=== PATIENT | female | born 1945 | race Two or more races ===

== ENCOUNTER 2017-01-17 18:34 | Emergency (ER) | payer OTHER ==
[~2017-01-17] VITALS: Ht 124.5 cm; Wt 63.5 kg
[~2017-01-17 18:34] MED LIST: ALBUAER3 IN; ASPI81CH43 PO; B-COTAB95 PO; CALC667C PO; CINA30TA2 PO; CLO01T PO; DOCU-80 PO; FLUT250M2 IN; HYDR-2652 OR; MET25T PO; NIFE30TA76 PO; OXYM0.0594
[2017-01-17 19:53] LABS: Basophils # (auto) 0 uL; Basophils % (auto) 0.6 % (0.0-2.0); Eosinophils # (auto) 0.1 uL; Eosinophils % (auto) 2.7 % (0.0-7.0); Hematocrit 34.3 % (36.0-46.0); Lymphocytes % (auto) 20.8 % (10.0-50.0); Mean Corpuscular Hemoglobin 29.9 pg (28.0-32.0); Mean Corpuscular Hgb Conc. 32.1 g/dL (32.0-36.0); Mean Corpuscular Volume 93.2 fL (80.0-100.0); Mean Platelet Volume 8.7 fL (7.4-10.4); Monocytes # (auto) 0.6 uL; Monocytes % (auto) 12.2 % (0.0-12.0); Neutrophils # (auto) 3.1 uL; Neutrophils % (auto) 63.7 % (37.0-80.0); Platelet Count (auto) 214 10^3/uL (140-450); Red Cell Distribution Width 18.8 % (11.6-16.0); White Blood Cell 4.8 10^3/uL (4.4-10.8)
[2017-01-17 20:01] LABS: Calcium 7.1 mg/dL (8.5-10.1)
[2017-01-17 20:04] LABS: Albumin 3.4 g/dL (3.4-5.0); BUN/Creatinine Ratio 3.3
[2017-01-17 20:15] LABS: Bilirubin, Total 0.6 mg/dL (0.2-1.0); Total Protein 7.9 g/dL (6.4-8.2)
[2017-01-17 21:15] VITALS: BP 124/68
== END 2017-01-17 21:51 | disposition home or self-care (01) ==
LOC: EDBD 18:34 → ER 18:45
DX: R07.89 Other chest pain (principal); E11.22 Type 2 diabetes mellitus with diabetic chronic kidney disease; N18.6 End stage renal disease; I10 Essential (primary) hypertension; Z99.2 Dependence on renal dialysis; I50.9 Heart failure, unspecified; J45.909 Unspecified asthma, uncomplicated; J44.9 Chronic obstructive pulmonary disease, unspecified; Z79.82 Long term (current) use of aspirin; Z91.041 Radiographic dye allergy status
CPT/HCPCS: 36415; 71010; 80053; 83735; 84484; 85025; 93005; 94761

== ENCOUNTER 2017-04-01 01:10 | Emergency (ER) | payer OTHER ==
[~2017-04-01] VITALS: Ht 154.9 cm; Wt 40.8 kg
[~2017-04-01 01:10] MED LIST changes: -MET25T PO; +MET50T PO; +MORP10CA10 PO; +NITR0.4S29 SL
[2017-04-01] MEDS ORDERED: SODIUM CHLORIDE 0.9% 1,000 ML IV ONE (01:20)
[2017-04-01] MEDS ORDERED: ONDANSETRON HCL 4 MG/2 ML VIAL IV ONE (01:30)
[2017-04-01 03:04] LABS: Basophils # (auto) 0 uL; CONDITION Y; Eosinophils # (auto) 0.2 uL; Eosinophils % (auto) 2.7 % (0.0-7.0); Hemoglobin 11.4 g/dL (12.2-16.2); Lymphocytes # (auto) 0.2 uL; Lymphocytes % (auto) 1.8 % (10.0-50.0); Mean Corpuscular Hgb Conc. 32.4 g/dL (32.0-36.0); Mean Corpuscular Volume 92.4 fL (80.0-100.0); Mean Platelet Volume 8.7 fL (7.4-10.4); Monocytes # (auto) 0.3 uL; Monocytes % (auto) 3.6 % (0.0-12.0); Neutrophils # (auto) 8.3 uL; Neutrophils % (auto) 91.9 % (37.0-80.0); Platelet Count (auto) 183 10^3/uL (140-450); Red Cell Distribution Width 16.6 % (11.6-16.0); White Blood Cell 9.1 10^3/uL (4.4-10.8)
[2017-04-01 03:14] LABS: INR 1.15 (0.9-1.15)
[2017-04-01 03:16] LABS: Albumin 3.5 g/dL (3.4-5.0); Calcium 8.1 mg/dL (8.5-10.1); Potassium 4.1 mmol/L (3.5-5.1)
[2017-04-01 03:19] LABS: Bilirubin, Total 0.6 mg/dL (0.2-1.0); Total Protein 8.6 g/dL (6.4-8.2)
[2017-04-01 03:21] LABS: Prothrombin Time 12.6 sec (9.37-12.3)
[2017-04-01 06:11] VITALS: BP 143/52
== END 2017-04-01 10:31 | disposition home or self-care (01) ==
LOC: EDBD 01:10 → ER 01:10
DX: K52.9 Noninfective gastroenteritis and colitis, unspecified (principal); R41.82 Altered mental status, unspecified; N18.6 End stage renal disease; J44.9 Chronic obstructive pulmonary disease, unspecified; I50.9 Heart failure, unspecified; I13.2 Hypertensive heart and chronic kidney disease with heart failure and with stage 5 chronic kidney disease, or end stage renal disease; Z86.73 Personal history of transient ischemic attack (TIA), and cerebral infarction without residual deficits; Z90.49 Acquired absence of other specified parts of digestive tract; J45.909 Unspecified asthma, uncomplicated; Z79.82 Long term (current) use of aspirin; Z98.51 Tubal ligation status
CPT/HCPCS: 36415; 70450; 74176; 80053; 83690; 84484; 85025; 85610; 93005; 94761; 96361; 96374; 99285; J2405; J7030

== ENCOUNTER 2017-08-07 05:40 | Inpatient (IN) | payer OTHER ==
[~2017-08-07] VITALS: Ht 152.4 cm; Wt 50.3 kg
[~2017-08-07 05:40] MED LIST changes: -HYDR-2652 OR; +HYDR50TA15 OR
[2017-08-07] MEDS ORDERED: MORPHINE SULFATE 10 MG/ML INJ 1ML SDV IV ONE (08:00)
[2017-08-07] MEDS ORDERED: ONDANSETRON HCL 4 MG/2 ML VIAL IV ONE (08:00)
[2017-08-07] MEDS ORDERED: NITROGLYCERIN 0.4 MG SL TAB SL ONE (10:00)
[2017-08-07 10:55] LABS: Basophils # (auto) 0 uL; Basophils % (auto) 0.6 % (0.0-2.0); Eosinophils # (auto) 0.2 uL; Eosinophils % (auto) 3.5 % (0.0-7.0); Hematocrit 33.2 % (36.0-46.0); Hemoglobin 10.7 g/dL (12.2-16.2); Lymphocytes # (auto) 1.3 uL; Lymphocytes % (auto) 18.2 % (10.0-50.0); Mean Corpuscular Hemoglobin 31.1 pg (28.0-32.0); Mean Corpuscular Hgb Conc. 32.2 g/dL (32.0-36.0); Mean Corpuscular Volume 96.5 fL (80.0-100.0); Monocytes # (auto) 0.7 uL; Monocytes % (auto) 9.5 % (0.0-12.0); Neutrophils # (auto) 4.8 uL; Neutrophils % (auto) 68.2 % (37.0-80.0); Nucleated Red Blood Cells % 0.1 %; Platelet Count (auto) 192 10^3/uL (140-450); Red Blood Cells 3.44 10^6/uL (4.0-5.20); Red Cell Distribution Width 18.2 % (11.8-14.3)
[2017-08-07 11:14] LABS: Albumin 3.5 g/dL (3.4-5.0); BUN/Creatinine Ratio 8.9; Bilirubin, Total 0.7 mg/dL (0.2-1.0); Calcium 7.9 mg/dL (8.5-10.1); INR 1.15 (0.9-1.15); Magnesium 2.5 mg/dL (1.6-2.6); Partial Thromboplastin Time 37.9 sec (22.64-33.71); Potassium 4.6 mmol/L (3.5-5.1); Prothrombin Time 12.6 sec (9.37-12.3); Total Protein 7.9 g/dL (6.4-8.2)
[2017-08-07] MEDS ORDERED: PATIENTS OWN MEDICATION (Fluticasone-Salmeterol (Advair Diskus 250/50) 2 PUFF) IN SCH (12:00)
[2017-08-07] MEDS ORDERED: MORPHINE SULFATE 10 MG/ML INJ 1ML SDV IV PRN ×2 (12:00)
[2017-08-07] MEDS ORDERED: ACETAMINOPHEN 500 MG TAB PO PRN (12:00)
[2017-08-07] MEDS ORDERED: ALBUTEROL SULF 2.5 MG/0.5ML(0.5%) NEB SOLN NEB PRN (12:00)
[2017-08-07] MEDS ORDERED: TEMAZEPAM 15 MG CAP PO PRN (12:00)
[2017-08-07] MEDS ORDERED: cloNIDine HCL 0.1 MG TAB PO PRN (12:00)
[2017-08-07] MEDS ORDERED: PROMETHAZINE HCL 25 MG/ML 1ML IV PRN (12:00)
[2017-08-07] MEDS ORDERED: NITROGLYCERIN 0.4 MG SL TAB SL PRN (12:00)
[2017-08-07] MEDS ORDERED: HYDROcodone-ACET 5/325MG TAB PO PRN (12:00)
[2017-08-07] MEDS: IPRATROPIUM BROM 0.5 MG/2.5ML INH SOL NEB SCH ×2 (12:05→18:57)
[2017-08-07] MEDS: ALBUTEROL SULF 2.5 MG/0.5ML(0.5%) NEB SOLN NEB SCH ×2 (12:05→18:57)
[2017-08-07] MEDS ORDERED: NIFEdipine ER 30 MG TAB PO ONE (12:30)
[2017-08-07] MEDS ORDERED: METOPROLOL TARTRATE 50 MG TAB PO ONE (12:30)
[2017-08-07] MEDS: SODIUM CHLOR 0.9% PF (SALINE LOCK) 10ML VIAL IV SCH ×2 (13:06→22:46)
[2017-08-07] MEDS: NITROGLYCERIN 0.2MG/HR TOPICAL PATCH TD SCH (13:19)
[2017-08-07] MEDS: CALCIUM ACETATE 667 MG CAP PO SCH ×2 (13:19→17:43)
[2017-08-07] MEDS ORDERED: PATIENTS OWN MEDICATION (Hydralazine Hcl 50 MG) OR SCH (14:00)
[2017-08-07] MEDS: hydrALAZINE HCL 25 MG TAB PO SCH ×2 (14:00→22:43)
[2017-08-07] MEDS: DOXYCYCLINE HYC 100MG/250ML 250 ML IV SCH ×2 (14:16→23:43)
[2017-08-07 14:37] VITALS: BP 166/65
[2017-08-07] MEDS: LORazepam 0.5 MG TAB PO PRN (16:38)
[2017-08-07 16:42] VITALS: BP 141/72
[2017-08-07] MEDS ORDERED: ATORVASTATIN 20 MG TAB PO SCH (22:00)
[2017-08-07] MEDS ORDERED: MORPHINE SULFATE 15 MG PO SCH (22:00)
[2017-08-07] MEDS ORDERED: BUDESONIDE (INHALATION) 0.5 MG/2 ML NEB NEB SCH (22:00)
[2017-08-07 22:16] VITALS: BP 131/84
[2017-08-07] MEDS: MORPHINE SULF 15mg ER tab PO SCH (22:44)
[2017-08-07] MEDS: NIFEdipine ER 30 MG TAB PO SCH (22:45)
[2017-08-07] MEDS: DOCUSATE SOD 100 MG CAP PO SCH (22:45)
[2017-08-07] MEDS: METOPROLOL TARTRATE 50 MG TAB PO SCH (22:46)
[2017-08-07] MEDS: LACTULOSE 20Gm/30ML SOLN PO PRN (23:44)
[2017-08-08] MEDS: ALBUTEROL SULF 2.5 MG/0.5ML(0.5%) NEB SOLN NEB SCH ×2 (00:21→06:21)
[2017-08-08] MEDS: IPRATROPIUM BROM 0.5 MG/2.5ML INH SOL NEB SCH ×2 (00:21→06:21)
[2017-08-08] MEDS: LORazepam 0.5 MG TAB PO PRN ×2 (02:31→09:01)
[2017-08-08 05:00] VITALS: BP 175/65
[2017-08-08] MEDS: hydrALAZINE HCL 25 MG TAB PO SCH ×2 (06:59→14:00)
[2017-08-08] MEDS: SODIUM CHLOR 0.9% PF (SALINE LOCK) 10ML VIAL IV SCH ×2 (06:59→14:00)
[2017-08-08 07:20] LABS: Basophils # (auto) 0 uL; Basophils % (auto) 0.5 % (0.0-2.0); Eosinophils # (auto) 0.3 uL; Eosinophils % (auto) 3.4 % (0.0-7.0); Hematocrit 31.4 % (36.0-46.0); Hemoglobin 10.3 g/dL (12.2-16.2); Lymphocytes # (auto) 1.4 uL; Mean Corpuscular Hemoglobin 31.6 pg (28.0-32.0); Mean Corpuscular Hgb Conc. 32.7 g/dL (32.0-36.0); Mean Corpuscular Volume 96.4 fL (80.0-100.0); Monocytes # (auto) 0.9 uL; Monocytes % (auto) 11.2 % (0.0-12.0); Neutrophils # (auto) 5.5 uL; Neutrophils % (auto) 67.9 % (37.0-80.0); Nucleated Red Blood Cells % 0.2 %; Platelet Count (auto) 191 10^3/uL (140-450); Red Blood Cells 3.26 10^6/uL (4.0-5.20); Red Cell Distribution Width 18.2 % (11.8-14.3); White Blood Cell 8.1 10^3/uL (4.4-10.8)
[2017-08-08 07:40] LABS: Albumin 3.5 g/dL (3.4-5.0); BUN/Creatinine Ratio 9.9; Bilirubin, Total 0.7 mg/dL (0.2-1.0); Calcium 7.9 mg/dL (8.5-10.1); Potassium 4.8 mmol/L (3.5-5.1); Total Protein 7.9 g/dL (6.4-8.2)
[2017-08-08] MEDS: CALCIUM ACETATE 667 MG CAP PO SCH ×2 (07:56→12:00)
[2017-08-08] MEDS: LACTULOSE 20Gm/30ML SOLN PO PRN (08:07)
[2017-08-08] MEDS: DOCUSATE SOD 100 MG CAP PO SCH (09:16)
[2017-08-08] MEDS ORDERED: EPOETIN ALFA 2,000 UNIT/1 ML VIAL IV ONE (09:30)
[2017-08-08] MEDS ORDERED: CINACALCET HYDROCHLORIDE PO SCH (10:00)
[2017-08-08] MEDS ORDERED: FLUTICASONE PROP NASAL SPR 0.05 % (50MCG) 16GM EACHNOSTRI SCH (10:00)
[2017-08-08] MEDS: MORPHINE SULF 15mg ER tab PO SCH (10:00)
[2017-08-08] MEDS ORDERED: ASPirin 81 mg TAB PO SCH (10:00)
[2017-08-08] MEDS: NITROGLYCERIN 0.2MG/HR TOPICAL PATCH TD SCH (10:00)
[2017-08-08] MEDS ORDERED: CINACALCET HYDROCHLORIDE 30 MG TAB PO SCH (10:00)
[2017-08-08] MEDS: NIFEdipine ER 30 MG TAB PO SCH (10:00)
[2017-08-08] MEDS ORDERED: ENOXAPARIN SOD 40 MG/0.4 ML SYRINGE SC SCH (10:00)
[2017-08-08] MEDS: METOPROLOL TARTRATE 50 MG TAB PO SCH (10:00)
[2017-08-08] MEDS: DOXYCYCLINE HYC 100MG/250ML 250 ML IV SCH (12:00)
[2017-08-08 13:00] VITALS: BP 98/63
[2017-08-08] MEDS ORDERED: IPR002IS HHN (13:05)
[2017-08-08] MEDS ORDERED: ALB5IS NEB (13:05)
[2017-08-08] MEDS ORDERED: METH4PAK PO (13:05)
[2017-08-08 17:49] VITALS: BP 180/57
== END 2017-08-08 17:15 | disposition home health service (06) | DRG 313 ==
LOC: EDBD 05:40 → ER 05:44 → TELE 05:45 → TELE-E-ADS 15:11 → TELE-CENTR 15:59
PROVIDERS: ADMIT Internal Medicine; ATTEND Internal Medicine
PROC: 5A1D70Z Performance of Urinary Filtration, Intermittent, Less than 6 Hours Per Day (ICD-10-PCS; principal; 2017-08-08)
DX: R07.89 Other chest pain (principal); I13.2 Hypertensive heart and chronic kidney disease with heart failure and with stage 5 chronic kidney disease, or end stage renal disease; J96.10 Chronic respiratory failure, unspecified whether with hypoxia or hypercapnia; E11.22 Type 2 diabetes mellitus with diabetic chronic kidney disease; N18.6 End stage renal disease; J44.1 Chronic obstructive pulmonary disease with (acute) exacerbation; I50.32 Chronic diastolic (congestive) heart failure; E11.319 Type 2 diabetes mellitus with unspecified diabetic retinopathy without macular edema; D63.8 Anemia in other chronic diseases classified elsewhere; E78.5 Hyperlipidemia, unspecified; F02.80 Dementia in other diseases classified elsewhere, unspecified severity, without behavioral disturbance, psychotic disturbance, mood disturbance, and anxiety; G30.9 Alzheimer's disease, unspecified; G40.909 Epilepsy, unspecified, not intractable, without status epilepticus; G89.4 Chronic pain syndrome; H54.7 Unspecified visual loss; F41.9 Anxiety disorder, unspecified; M54.9 Dorsalgia, unspecified; K59.00 Constipation, unspecified; Z82.49 Family history of ischemic heart disease and other diseases of the circulatory system; Z82.5 Family history of asthma and other chronic lower respiratory diseases; Z83.3 Family history of diabetes mellitus; Z85.038 Personal history of other malignant neoplasm of large intestine; Z86.73 Personal history of transient ischemic attack (TIA), and cerebral infarction without residual deficits; Z87.891 Personal history of nicotine dependence; Z99.2 Dependence on renal dialysis; Z91.041 Radiographic dye allergy status; Z90.49 Acquired absence of other specified parts of digestive tract
CPT/HCPCS: 36415; 71010; 80053; 80061; 82550; 82962; 83735; 83880; 84443; 84484; 85025; 85379; 85610; 85652; 85730; 86141; 87081; 90935; 93005; 94640; 96372; 96374; 96375; J2405; J3490; Q4081

== ENCOUNTER 2018-02-19 14:41 | Inpatient (IN) | payer OTHER ==
[~2018-02-19] VITALS: Ht 144.8 cm; Wt 59.0 kg
[2018-02-19] MEDS: HEPARIN SODIUM (PORCINE) 5000 UNITS/ML 1ML VIAL SC SCH
[~2018-02-19 14:41] MED LIST changes: +ALB5IS NEB; +IPR002IS HHN; +PANT40TA2 PO
[2018-02-19] MEDS ORDERED: methylPREDNISolone SOD SUCC 125 MG/2 ML VL IV ONE (15:00)
[2018-02-19] MEDS ORDERED: diphenhdrAMINE HCL 50 MG/1 ML VL IV ONE (15:15)
[2018-02-19] MEDS ORDERED: ETOMIDATE (2MG/ML) 20ML VIAL IV ONE ×2 (15:35→15:45)
[2018-02-19] MEDS ORDERED: SUCCINYLCHOLINE CHLORIDE 20 MG/ML 10ML VIAL IV ONE ×2 (15:36→15:45)
[2018-02-19] MEDS ORDERED: MIDAZOLAM DRIP 50 mg/50mL 50 ML IV ONE (15:53)
[2018-02-19] MEDS: MIDAZOLAM DRIP 50 mg/50mL 50 ML IV SCH ×2 (15:54→20:58)
[2018-02-19 16:00] VITALS: BP 142/58
[2018-02-19 16:05] LABS: Basophils # (auto) 0 uL; Basophils % (auto) 0.6 % (0.0-2.0); Eosinophils # (auto) 0 uL; Eosinophils % (auto) 0.2 % (0.0-7.0); Hematocrit 32.4 % (36.0-46.0); Hemoglobin 10.4 g/dL (12.2-16.2); Lymphocytes # (auto) 0.1 uL; Lymphocytes % (auto) 2.4 % (10.0-50.0); Mean Corpuscular Hgb Conc. 32.2 g/dL (32.0-36.0); Mean Corpuscular Volume 96.2 fL (80.0-100.0); Monocytes # (auto) 0.1 uL; Monocytes % (auto) 1.8 % (0.0-12.0); Neutrophils # (auto) 4.4 uL; Nucleated Red Blood Cells % 0.2 %; Platelet Count (auto) 147 10^3/uL (140-450); Red Blood Cells 3.37 10^6/uL (4.0-5.20); Red Cell Distribution Width 18.5 % (11.8-14.3); White Blood Cell 4.6 10^3/uL (4.4-10.8)
[2018-02-19 16:25] LABS: Chloride 102 mmol/L (98-107); Potassium 5.2 mmol/L (3.5-5.1); Sodium 139 mmol/L (136-145)
[2018-02-19] MEDS ORDERED: FUROSEMIDE 40 MG/4 ML VIAL IV ONE (17:00)
[2018-02-19 17:12] LABS: Alanine Aminotransferase 19 U/L (13-56); Albumin 3.3 g/dL (3.4-5.0); Anion Gap 12 (5-15); BUN/Creatinine Ratio 10.3; Blood Urea Nitrogen 57 mg/dL (7-18); Calcium 7.1 mg/dL (8.5-10.1); Carbon Dioxide 25 mmol/L (21-32); GFR African American 10 mL/min; GFR Non-African American 8 mL/min; Glucose 155 mg/dL (74-106); Magnesium 2.2 mg/dL (1.6-2.6)
[2018-02-19 17:17] LABS: Alkaline Phosphatase 173 U/L (45-117); Aspartate Aminotransferase 34 U/L (15-37); Bilirubin, Total 0.5 mg/dL (0.2-1.0); Total Protein 8.2 g/dL (6.4-8.2)
[2018-02-19 18:00] VITALS: BP 150/62
[2018-02-19] MEDS ORDERED: MORPHINE SULFATE 4 MG/ML SYR/VIAL IV PRN ×3 (18:15)
[2018-02-19] MEDS ORDERED: ALBUTEROL SULF 2.5 MG/0.5ML(0.5%) NEB SOLN NEB PRN (18:15)
[2018-02-19] MEDS ORDERED: LORazepam 2MG/ML-1ML VIAL IV PRN (18:15)
[2018-02-19] MEDS ORDERED: NITROGLYCERIN 0.4 MG SL TAB SL PRN (18:15)
[2018-02-19] MEDS ORDERED: DEXTROSE (50%) 50ML SYRG IV PRN (18:15)
[2018-02-19] MEDS ORDERED: PROMETHAZINE HCL 25 MG/ML 1ML IV PRN (18:15)
[2018-02-19 19:16] LABS: Folate (Folic Acid) 11.49 ng/mL (5.38-24)
[2018-02-19 19:26] LABS: INR 1.11 (0.9-1.15); Partial Thromboplastin Time 37.8 sec (22.64-33.71); Prothrombin Time 12.1 sec (9.37-12.3)
[2018-02-19 20:40] VITALS: BP 133/46
[2018-02-19] MEDS: methylPREDNISolone SOD SUCC 40 MG/ML VL IV SCH (21:00)
[2018-02-19] MEDS: AZITHROMYCIN 500MG/ 250ML 250 ML IV SCH (21:03)
[2018-02-19 22:15] VITALS: BP 110/39
[2018-02-19] MEDS: SODIUM CHLOR 0.9% PF (SALINE LOCK) 10ML VIAL/SYR IV SCH (23:00)
[2018-02-19] MEDS: cefTRIAXone 1GM/10ml IVPUSH 10 ML IV SCH (23:30)
[2018-02-19 23:42] VITALS: BP 143/52
[2018-02-20] VITALS (9 sets, daily range): BP systolic 145–161; BP diastolic 43–66
[2018-02-20] MEDS: IPRATROPIUM BROM 0.5 MG/2.5ML INH SOL NEB SCH ×2 (00:22→05:46)
[2018-02-20] MEDS: ALBUTEROL SULF 2.5 MG/0.5ML(0.5%) NEB SOLN NEB SCH ×2 (00:22→05:46)
[2018-02-20] MEDS: methylPREDNISolone SOD SUCC 40 MG/ML VL IV SCH ×2 (03:22→10:25)
[2018-02-20] MEDS: SODIUM CHLOR 0.9% PF (SALINE LOCK) 10ML VIAL/SYR IV SCH (05:51)
[2018-02-20] MEDS: ACCU-CHEK COMFORT CURVE STRIP VI SCH ×2 (06:00)
[2018-02-20] MEDS: InsuLIN REG 1unit/0.01ml Soln (100units/ml) SC SCH ×2 (06:00)
[2018-02-20 06:04] LABS: Basophils # (auto) 0 uL; Basophils % (auto) 0.2 % (0.0-2.0); Eosinophils # (auto) 0 uL; Hematocrit 31.3 % (36.0-46.0); Hemoglobin 10.5 g/dL (12.2-16.2); Lymphocytes # (auto) 0.3 uL; Lymphocytes % (auto) 6.4 % (10.0-50.0); Mean Corpuscular Hemoglobin 31.7 pg (28.0-32.0); Mean Corpuscular Hgb Conc. 33.4 g/dL (32.0-36.0); Mean Corpuscular Volume 95.1 fL (80.0-100.0); Monocytes # (auto) 0.2 uL; Monocytes % (auto) 3.2 % (0.0-12.0); Neutrophils # (auto) 4.3 uL; Neutrophils % (auto) 90.2 % (37.0-80.0); Nucleated Red Blood Cells % 0.2 %; Platelet Count (auto) 133 10^3/uL (140-450); Red Cell Distribution Width 18.2 % (11.8-14.3); White Blood Cell 4.8 10^3/uL (4.4-10.8)
[2018-02-20 06:25] LABS: Albumin 3.1 g/dL (3.4-5.0); BUN/Creatinine Ratio 9.3; Bilirubin, Total 0.7 mg/dL (0.2-1.0); Calcium 7.7 mg/dL (8.5-10.1); Potassium 4.1 mmol/L (3.5-5.1); Total Protein 7.8 g/dL (6.4-8.2)
[2018-02-20] MEDS: cefTRIAXone 1GM/10ml IVPUSH 10 ML IV SCH (09:00)
[2018-02-20] MEDS ORDERED: Novasource Renal 1 Liter GT SCH (10:00)
[2018-02-20] MEDS ORDERED: ENOXAPARIN SOD 30 MG/0.3 ML SYRINGE SC SCH (10:00)
[2018-02-20] MEDS ORDERED: ASPirin 81 mg TAB NG SCH (10:00)
[2018-02-20] MEDS ORDERED: B-COMPLEX W/ C & FOLIC ACID(NEPHROVITE TAB) PO SCH (10:00)
[2018-02-20] MEDS ORDERED: FUROSEMIDE 40 MG/4 ML VIAL IV SCH (10:00)
[2018-02-20] MEDS ORDERED: ENALAPRIL MALEATE 2.5 MG TAB NG SCH ×2 (10:00→17:31)
[2018-02-20] MEDS ORDERED: NITROGLYCERIN 0.2MG/HR TOPICAL PATCH TD SCH (10:00)
[2018-02-20] MEDS: MIDAZOLAM DRIP 50 mg/50mL 50 ML IV SCH (10:26)
[2018-02-20] MEDS: HEPARIN SODIUM (PORCINE) 5000 UNITS/ML 1ML VIAL SC SCH (10:28)
[2018-02-20] MEDS: AZITHROMYCIN 500MG/ 250ML 250 ML IV SCH (10:50)
== END 2018-02-20 12:20 | disposition short-term general hospital (02) | DRG 208 ==
LOC: EDBD 14:41 → ER 14:41 → TELE 14:42
PROVIDERS: ADMIT Internal Medicine; ATTEND Internal Medicine
PROC: 5A1935Z Respiratory Ventilation, Less than 24 Consecutive Hours (ICD-10-PCS; principal; 2018-02-19)
PROC: 0BH17EZ Insertion of Endotracheal Airway into Trachea, Via Natural or Artificial Opening (ICD-10-PCS; 2018-02-19)
PROC: 5A1D70Z Performance of Urinary Filtration, Intermittent, Less than 6 Hours Per Day (ICD-10-PCS; 2018-02-19)
DX: J96.01 Acute respiratory failure with hypoxia (principal); G93.1 Anoxic brain damage, not elsewhere classified; I13.2 Hypertensive heart and chronic kidney disease with heart failure and with stage 5 chronic kidney disease, or end stage renal disease; I50.33 Acute on chronic diastolic (congestive) heart failure; N18.6 End stage renal disease; G30.9 Alzheimer's disease, unspecified; F02.80 Dementia in other diseases classified elsewhere, unspecified severity, without behavioral disturbance, psychotic disturbance, mood disturbance, and anxiety; G40.909 Epilepsy, unspecified, not intractable, without status epilepticus; E11.22 Type 2 diabetes mellitus with diabetic chronic kidney disease; D63.8 Anemia in other chronic diseases classified elsewhere; F41.9 Anxiety disorder, unspecified; E11.42 Type 2 diabetes mellitus with diabetic polyneuropathy; J44.9 Chronic obstructive pulmonary disease, unspecified; Z80.0 Family history of malignant neoplasm of digestive organs; Z82.49 Family history of ischemic heart disease and other diseases of the circulatory system; Z82.5 Family history of asthma and other chronic lower respiratory diseases; Z83.3 Family history of diabetes mellitus; Z86.73 Personal history of transient ischemic attack (TIA), and cerebral infarction without residual deficits; Z91.041 Radiographic dye allergy status; Z99.2 Dependence on renal dialysis; Z90.49 Acquired absence of other specified parts of digestive tract
CPT/HCPCS: 31500; 36415; 36556; 36600; 51702; 70450; 71045; 80053; 80061; 82140; 82550; 82607; 82746; 82805; 82962; 83036; 83735; 83880; 84443; 84484; 85025; 85610; 85730; 87040; 87070; 87076; 87077; 87186; 87205; 90935; 93005; 94002; 94003; 94640; 99291; J0330; J2250